=== PATIENT | female | born 1970 | race Hispanic/Latino ===

== ENCOUNTER → 2018-05-16 | Day surgery (SDC) | payer BC ==
[~2018-05-16] MED LIST: AZITHROMYCIN250 MG PO; BENTYL10 MG PO; BENZONATATE100 MG PO; CIPROFLOXACIN250 MG PO; FENTANYL CITRATE/PF 100MCG/2 ML INJ ONE; FLAGYL500 MG PO; HYOSCYAMINE SULFATE 0.5 MG/ML INJ ONE; MIDAZOLAM HCL 5MG/ML 2ML VIAL ONE; NORCO 5-325 TA1 EACH PO; PANTOPRAZOLE SO40 MG PO; PROPOFOL IV EMULSION 10 MG/ML 50 ML VIAL ONE; ULTRAM 50MG50 MG PO; ZOFRAN4 MG SL
--- OUTSIDE RECORDS SUMMARY | 2018-05-16 09:55 | XMS REPORT | Clinical Summary ---
Author Author [facility] Address Unknown Phone Unavailable Care Team Providers Care Fire And Explosion Investigator Name Role Phone PCP Unavailable Allergies Not on File Medications Not on file Active Problems Not on file Encounters Care Team Description Date Type Specialty 02/20/2018 Clinical Corporate Wellness Support after 05/15/2017 Immunizations Name Dates Previously Given Next Due FLUCELVAX QUAD PF (0.5mL 02/20/2018 syringe) Social History Date Tobacco Use Types Packs/Day Years Used Never Assessed Sex Assigned at Date Recorded Not on file Industry Job Start Date Occupation Not on file Not on file Not on file Travel End Travel History Travel Start No recent travel history available. Last Filed Vital Signs Not on file Plan of Treatment Health Maintenance Due Date Last Done Comments MMR VACCINES (1 of - 1971 Standard series) VARICELLA VACCINES (1 of 1983 2 - 2-dose adolescent series) CERVICAL CANCER SCREENING 1991 INFLUENZA VACCINE Completed 02/20/2018 HEPATITIS B VACCINES Aged Out No longer eligible based on patient's age to complete this topic IPV VACCINES Aged Out No longer eligible based on patient's age to complete this topic MENINGOCOCCAL VACCINE Aged Out No longer eligible based on patient's age to complete this topic Results Not on fileafter 05/15/2017 Insurance Payer Benefit Subscriber ID Type Phone Address Plan / Group BCBS BCBS xxxxxxxxxxxx PPO CHOICE PPO/FEDEMILE L EMPL PPO Advance Directives Patient has advance care planning documents on file. For more information, abhinav crooks contact: Brent Simon [address] [place] [id number]
[2018-05-16 13:15] VITALS: BP 134/74
[2018-05-16 13:28] LABS: WBC,FECAL (FECAL LACTOFERRIN) NEGATIVE (NEGATIVE)
--- NOTE | 2018-05-16 14:13 | Operative Report ---
DATE OF PROCEDURE: May 16, 2018 REFERRING PHYSICIAN: Dr. Jey Morris PROCEDURES PERFORMED 1. Esophagogastroduodenoscopy with esophageal dilatation and biopsies. 2. Colonoscopy with biopsies. INDICATIONS FOR EGD: Upper abdominal pain, dysphagia to solids. INDICATIONS FOR COLONOSCOPY: Chronic diarrhea, personal history of colon polyps. MEDICATION: Patient was done under MAC. Please see anesthesiologist's note. PROCEDURE: With the patient in the left lateral decubitus position, the flexible fiberoptic Olympus gastroscope was introduced into the esophagus under direct visualization without any difficulty. There was some patchy erythema noted in the distal esophagus. A minute tongue of velvety red mucosa was noted to extend proximally from the GE junction. Biopsies were obtained to rule out Kevin's. The esophagus was then dilated to size 52-[place] Dos Santos. The scope was then advanced with ease into the stomach, traversing a small sliding hiatal hernia. Mucosa overlying the antrum and the body revealed some patchy erythema and low-grade to moderate edema, and biopsies were obtained and sent to stain for H. pylori. Pylorus was of normal contour and shape. It was intubated with ease, and the scope was advanced all the way to the 2nd portion of the duodenum. The scope was then withdrawn slowly. Mucosa overlying the proximal 2nd portion and the duodenal bulb grossly appeared to be within normal limits. Biopsies were obtained to rule out sprue considering the patient's history of chronic diarrhea. The scope was then withdrawn back into the stomach and retroflexed. The mucosa overlying the fundus and the cardia appeared to be within normal limits. The scope was then straightened out. It was subsequently withdrawn. Patient tolerated the procedure well. IMPRESSION 1. Distal esophagitis, mild. 2. Esophagus dilated to size 52-[place] Dos Santos. 3. Rule out Kevin's esophagus. 4. Small sliding hiatal hernia. 5. Gastritis, biopsied. Biopsies sent to stain for H. pylori. 6. Rule out sprue. PLAN: Follow up histology. Initiate Protonix 40 mg 1 p.o. q.a.m. a.c. The patient was then turned around. After adequate lubrication of the anal canal, a flexible fiberoptic Olympus colonoscope was inserted into the rectum with ease and advanced all the way to the ileocolic anastomosis which was patent. The scope was then withdrawn slowly. Mucosa overlying the transverse as well as the descending and the sigmoid colon revealed some patchy mild inflammatory changes. Random biopsies were obtained. Diverticulosis was noted to involve the distal descending and the sigmoid colon. Similar inflammatory findings were noted in the rectum, and biopsies were obtained. The scope was then retroflexed into the distal rectum, and small internal hemorrhoids were noted, none of which was actively bleeding. The scope was then straightened out. It was subsequently withdrawn after securing an adequate stool specimen that was sent for the appropriate stool studies. Patient tolerated the procedure well. IMPRESSION 1. Ileocolic anastomosis intact. 2. Mild patchy colitis. 3. Diverticulosis. 4. Proctitis, mild. 5. Internal hemorrhoids, none actively bleeding. PLAN: Follow up histology. Follow up stool studies. Initiate Bentyl 10 mg 1 p.o. t.i.d. Patient might benefit from a followup colonoscopy in 3 to 5 years. YESSENIA JAMES MD Job#: [id number] cc:JEY MORRIS MD
[2018-05-16 14:34] LABS: C DIFFICILE TOXIN A&B AMP PROB NEGATIVE (NEGATIVE)
== END | disposition home or self-care (01) ==
LOC: OR 09:53
PROVIDERS: ATTEND Internal Medicine Gastroenterology
DX: K29.70 Gastritis, unspecified, without bleeding (principal); K52.9 Noninfective gastroenteritis and colitis, unspecified; K20.9 Esophagitis, unspecified; K44.9 Diaphragmatic hernia without obstruction or gangrene; K22.8 Other specified diseases of esophagus; Z98.0 Intestinal bypass and anastomosis status; K57.30 Diverticulosis of large intestine without perforation or abscess without bleeding; K62.89 Other specified diseases of anus and rectum; K64.8 Other hemorrhoids; D72.820 Lymphocytosis (symptomatic); R03.0 Elevated blood-pressure reading, without diagnosis of hypertension; E66.01 Morbid (severe) obesity due to excess calories; Z88.6 Allergy status to analgesic agent; Z80.0 Family history of malignant neoplasm of digestive organs; Z68.42 Body mass index [BMI] 45.0-49.9, adult
CPT/HCPCS: 43239; 43450; 45380; 83630; 83993; 87045; 87177; 87328; 87493; J1980; J2250; 45378

== ENCOUNTER 2018-05-21 08:36 | Emergency (ER) | payer BC ==
[~2018-05-21] VITALS: Ht 162.6 cm; Wt 113.4 kg
[~2018-05-21 08:36] MED LIST changes: -CIPROFLOXACIN250 MG PO; -FENTANYL CITRATE/PF 100MCG/2 ML INJ ONE; -FLAGYL500 MG PO; -HYOSCYAMINE SULFATE 0.5 MG/ML INJ ONE; -MIDAZOLAM HCL 5MG/ML 2ML VIAL ONE; -PROPOFOL IV EMULSION 10 MG/ML 50 ML VIAL ONE; -ZOFRAN4 MG SL
--- OUTSIDE RECORDS SUMMARY | 2018-05-21 08:39 | XMS REPORT | Clinical Summary ---
Author Author [facility] Address Unknown Phone Unavailable Care Team Providers Care Banquet Set Up Person Name Role Phone PCP Unavailable Allergies Not on File Medications Not on file Active Problems Not on file Encounters Care Team Description Date Type Specialty 02/20/2018 Clinical Corporate Wellness Support after 05/20/2017 Immunizations Name Dates Previously Given Next Due [...] complete this topic Results Not on fileafter 05/20/2017 Insurance Payer Benefit Subscriber ID Type Phone Address Plan / Group BCBS BCBS xxxxxxxxxxxx PPO CHOICE PPO/FEDEMILE L EMPL PPO Advance Directives Patient has advance care planning documents on file. For more information, abhinav crooks contact: Brent Simon [address] [place] [id number]
[2018-05-21] MEDS ORDERED: PANTOPRAZOLE 40 MG 10ML VIAL IV STA (08:48)
[2018-05-21] MEDS ORDERED: ONDANSETRON HCL INJ 2 MG/ML VIAL IV STA (08:48)
[2018-05-21] MEDS ORDERED: SODIUM CHLORIDE 0.9% 1000ML 1,000 ML IV STA (08:48)
[2018-05-21] MEDS ORDERED: FENTANYL CITRATE/PF 100MCG/2 ML INJ IV ONE (09:00)
--- NOTE | 2018-05-21 11:05 | Diagnostic Imaging Report ---
PROCEDURE:X-RAY CHEST, ONE VIEW COMPARISON:None. INDICATIONS:ABDOMEN PAIN FINDINGS: There are no consolidations, pleural effusions or pneumothorax. The cardiomediastinal silhouette and pulmonary vasculature are normal. There is a soft tissue density along the right medial cardiac border. This may represent a prominent epicardial fat-pad versus adenopathy. Linear right basilar atelectasis. There are no acute osseous abnormalities. CONCLUSION: No acute cardiopulmonary abnormality. Prominent soft tissue density along the medial right cardiac border. Aidan Desai D.O. Dictated by: Aidan Desai D.O. on 05/21/2018 at 11:15 Electronically approved by: Aidan Desai D.O. on 05/21/2018 at 11:15
[2018-05-21 11:08] LABS: BASOPHILS # (AUTO) 0.1 (0.0-0.1); BASOPHILS % 0.5 % (0.0-1.0); EOSINOPHILS # (AUTO) 0.2 (0.0-0.4); EOSINOPHILS % 1.8 % (0.0-6.0); HEMATOCRIT 40.1 % (34.2-44.1); HEMOGLOBIN 13.7 g/dL (12.0-16.0); LYMPHOCYTES # (AUTO) 3.3 (1.0-3.2); LYMPHOCYTES % 29.2 % (18.0-39.1); MEAN CORPUSCULAR HEMOGLOBIN 29.7 pg (28-32); MEAN CORPUSCULAR HGB CONC 34.2 g/dL (31-35); MEAN CORPUSCULAR VOLUME 86.8 fL (81-99); MONOCYTES # (AUTO) 0.5 (0.2-0.8); MONOCYTES % 4.8 % (4.4-11.3); NEUTROPHILS # (AUTO) 7.2 (2.1-6.9); NEUTROPHILS % 63.3 % (38.7-80.0); PLATELET COUNT 343 x10e3/uL (140-360); RED BLOOD COUNT 4.62 x10e6/uL (3.6-5.1); RED CELL DISTRIBUTION WIDTH 13.1 % (11.7-14.4)
[2018-05-21 11:08] LABS: CLARITY,URINE SL CLOUDY (CLEAR); COLOR,URINE YELLOW (YELLOW)
[2018-05-21 11:09] LABS: BILIRUBIN,URINE NEGATIVE (NEGATIVE); KETONES,URINE NEGATIVE (NEGATIVE); LEUKOCYTE ESTERASE ,URINE NEGATIVE (NEGATIVE); NITRITE,URINE NEGATIVE (NEGATIVE); PROTEIN,URINE DIPSTICK NEGATIVE (NEGATIVE); URINE UROBILINOGEN 0.2 mg/dL (0.2 - 1)
[2018-05-21 11:21] LABS: BACTERIA,URINE FEW /HPF; EPITHELIAL CELLS,URINE RARE /LPF; RBC,URINE 0-5 /HPF (0-5)
[2018-05-21 11:23] LABS: ALANINE AMINOTRANSFERASE 27 IU/L (0-55); ALBUMIN 3.7 g/dL (3.5-5.0); ALBUMIN/GLOBULIN RATIO 0.8 (0.8-2.0); ALKALINE PHOSPHATASE 98 IU/L (40-150); ANION GAP 14.8 mmol/L (8-16); BLOOD UREA NITROGEN 9 mg/dL (7-26); BUN/CREATININE RATIO 12 (6-25); CALCIUM 9.9 mg/dL (8.4-10.2); CARBON DIOXIDE 22 mmol/L (22-29); CHLORIDE 106 mmol/L (98-107); CREATININE, SERUM 0.75 mg/dL (0.57-1.11); EST GLOMERULAR FILTRATION RATE > 60 ML/MIN (60-); GLUCOSE 103 mg/dL (74-118); POTASSIUM 3.8 mmol/L (3.5-5.1); SODIUM 139 mmol/L (136-145)
--- NOTE | 2018-05-21 13:24 | Diagnostic Imaging Report ---
EXAM: CT Abdomen and Pelvis WITH contrast INDICATION: Pain COMPARISON: None. TECHNIQUE: Abdomen and Pelvis was scanned utilizing a multidetector helical scanner after administration of IV contrast. Coronal and sagittal reformations were obtained. IV CONTRAST: 100 mL Isovue-370 COMPLICATIONS: None RADIATION DOSE: Total DLP:877 mGy*cm Estimated effective dose: (DLP x 0.015 x size factor) mSv CTDIvol has been reviewed. It is below the limits set by the Radiation Protocol Committee (RPC). Appropriate CT dose reduction techniques were utilized. FINDINGS: Abdomen: Lung Bases: Atelectasis. Solid Organs: Decreased attenuation of liver suggesting steatosis. Cholecystectomy clips. Liver, adrenals, kidneys, spleen, and pancreas otherwise unremarkable. Upper GI Tract: No small bowel obstructive changes. Vascularity: No aortic aneurysm. Lymph Nodes: No suspicious adenopathy. Other: None. Pelvis: Bladder: Unremarkable. Other: None. Colon: Diverticulosis. Postsurgical changes:, Right hemicolectomy. Mild haziness about sigmoid colon. Bones: No acute findings. IMPRESSION: 1. Diverticulosis with minimal diverticulitis possible. 2. Hepatic steatosis. Signed by: Dr. Jeffery Shepherd MD on 05/21/2018 1:20 PM
[2018-05-21] MEDS ORDERED: CIPROFLOXACIN250 MG PO (13:47)
[2018-05-21] MEDS ORDERED: FLAGYL500 MG PO (13:48)
[2018-05-21 14:26] VITALS: BP 159/86
[2018-05-21] MEDS ORDERED: ZOFRAN4 MG SL (14:28)
[2018-05-21] MEDS ORDERED: ULTRAM 50MG50 MG PO (14:29)
[2018-05-21] MEDS ORDERED: IOPAMIDOL 370 MG/ML 200 ML INFUS..BTL INJ ONE (18:44)
[2018-05-21] MEDS ORDERED: SODIUM CHLORIDE 0.9% 50ML 50 ML ONE (18:44)
== END 2018-05-21 14:38 | disposition home or self-care (01) ==
LOC: ER 08:36
DX: R10.12 Left upper quadrant pain (principal); R10.84 Generalized abdominal pain; R11.0 Nausea
CPT/HCPCS: 36415; 71045; 74177; 80053; 81001; 84702; 85025; 99284; J2405; J7030; Q9967

== ENCOUNTER 2019-03-11 05:06 | Emergency (ER) | payer BC, OTHER ==
[~2019-03-11] VITALS: Ht 162.6 cm; Wt 113.4 kg
[~2019-03-11 05:06] MED LIST changes: +CIPROFLOXACIN250 MG PO; +FLAGYL500 MG PO; +ZOFRAN4 MG SL
--- OUTSIDE RECORDS SUMMARY | 2019-03-11 05:09 | XMS REPORT ---
Author Author [facility] Address Unknown Phone Unavailable Care Team Providers Care Slimer Name Role Phone Anne JJ Unavailable Unavailable Problems This patient has no known problems. Allergies, Adverse Reactions, Alerts This patient has no known allergies or adverse reactions. Medications This patient has no known medications. Encounters Start Date/Time End Date/Time Encounter Type Admission Type Attending [facility] Facility Care Department Encounter ID 2018-09-07 12:36:00 2018-09-07 12:36:00 Emergency E [facility]NE [id number] Results Test Description Test Time Test Comments Text Results Atomic Results Result Comments CT ABDOMEN/PELVIS W 2018-05-21 13:18:00 [place] [address] Patient Name: JU RAJAN MR #: [id number] : 1970 Age/Sex: 48/F Req #: [id number] Adm Physician: Ordered by: OLGA JJ MD Report #: [id number] Location: ER Room/Bed: Procedure: [id number] CT/CT ABDOMEN/PELVIS W Exam Date: 05/21/18 Exam Time: 1205 REPORT STATUS: Signed EXAM: CT Abdomen and Pelvis WITH contrast INDICA TION: Pain COMPARISON: None. TECHNIQUE: Abdomen and Pelvis was scanned utilizing a multidetector helical scanner after administration of IV contrast. Coronal and sagittal reformations were obtained. IV CONTRAST: 100 mL Isovue-370 COMPLICATIONS: None RADIATION DOSE: Total DLP:877 mGy*cm Estimated effective dose: (DLP x 0.015 x size factor) mSv CTDIvol has been reviewed. It is below the limits set by the Radiation Protocol Committee (RPC). Appropriate CT dose reduction techniques were utilized. FINDINGS: Abdomen: Lung Bases: Atelectasis. Solid Organs: Decreased attenuation of liver suggesting steatosis. Cholecystectomy clips. Liver, adrenals, kidneys, spleen, and pancreas otherwise unremarkable. Upper GI Tract: No small bowel obstructive changes. Vascularity: No aortic aneurysm. Lymph Nodes: No suspicious adenopathy. Other: None. Pelvis: Bladder: Un remarkable. Other: None. Colon: Diverticulosis. Postsurgical changes:, Right hemicolectomy. Mild haziness about sigmoid colon. Bones: No acute findings. IMPRESSION: 1. Diverticulosis with minimal diverticulitis possible. 2. Hepatic steatosis. Signed by: Dr. Jeffery Shepherd MD on 05/21/2018 1:20 PM Dictated By: JEFFERY SHEPHERD MD 1320 Transcribed By: KARINA on 05/21/18 1320 COPY TO: OLGA JJ MD CHEST SINGLE (NOT PORTABLE) 2018-05-21 11:15:00 [place] [address] Patient Name: JU RAJAN MR #: [id number] : 1970 Age/Sex: 48/F Req #: [id number] Adm Physician: Ordered by: OLGA JJ MD Report #: [id number] Location: ER Room/Bed: Procedure: [id number] DX/CHEST SINGLE (NOT PORTABLE) Exam Date: 05/21/18 Exam Time: 1035 REPORT STATUS: Signed PROCEDURE: X-RAY CHEST, ONE VIEW COMPARISON: None. INDICATIONS: ABDOMEN PAIN FINDINGS: There are no consolidations, pleural effusions or pneumothorax. The cardiomediastinal silhouette and pulmonary vasculature are normal. There is a soft tissue density along the right medial cardiac border. This may represent a prominent epicardial fat-pad versus adenopathy. Linear right basilar atelectasis. There are no acute osseous abnormalities. CONCLUSION: No acute cardiopulmonary abnormality. Prominent soft tissue density along the medial right cardiac border. Zelda Desai D.O. Dictated by: Zelda Desai D.O. on 05/21/2018 at 11:15 Electronically approved by: Zelda Desai D.O. on 05/21/2018 at 11:15 Dictated By: ZELDA DESAI DO 1115 Transcribed By: LINK on 05/21/18 1115 COPY TO: OLGA JJ MD
--- OUTSIDE RECORDS SUMMARY | 2019-03-11 05:09 | XMS REPORT | Clinical Summary ---
Author Author [facility] Address Unknown Phone Unavailable Care Team Providers Care Chemistry Lab Instructor Name Role Phone PCP Unavailable Allergies Not on File Medications Not on file Active Problems Not on file Immunizations Name Administration Dates Next Due FLUCELVAX QUAD PF 02/20/2018 Social History Date Tobacco Use Types Packs/Day Years Used Never Assessed Sex Assigned at Date Recorded Not on file Industry Job Start Date Occupation Not on file Not on file Not on file Travel End Travel History Travel Start No recent travel history available. Last Filed Vital Signs Not on file Plan of Treatment Health Maintenance Due Date Last Done Comments CERVICAL CANCER SCREENING 1991 INFLUENZA VACCINE 01/15/2019 02/20/2018 Results Not on fileafter 03/10/2018 Insurance Type Payer Benefit Subscriber ID Effective Phone Address Plan / Dates Group PPO BCBS BCBS xxxxxxxxxxxx 2017-P CHOICE resent PPO/TOMY JAY PPO Advance Directives For more information, please contact: [phone] Patient Tomographic Tech Explanation Type Date Recorded Advance Directives, Living Will and Medical Power of Carbon Setter
[2019-03-11] MEDS ORDERED: DIATRIZOATE MEGL/DIATRIZOA SOD 30 ML BTL PO ONE (05:43)
[2019-03-11 06:49] LABS: BASOPHILS # (AUTO) 0.1 (0.0-0.1); BASOPHILS % 0.6 % (0.0-1.0); EOSINOPHILS # (AUTO) 0.2 (0.0-0.4); EOSINOPHILS % 2.2 % (0.0-6.0); HEMATOCRIT 40.7 % (34.2-44.1); HEMOGLOBIN 13.5 g/dL (12.0-16.0); LYMPHOCYTES # (AUTO) 2.5 (1.0-3.2); MEAN CORPUSCULAR HEMOGLOBIN 29.2 pg (28-32); MEAN CORPUSCULAR HGB CONC 33.2 g/dL (31-35); MEAN CORPUSCULAR VOLUME 87.9 fL (81-99); MONOCYTES # (AUTO) 0.5 (0.2-0.8); MONOCYTES % 4.9 % (4.4-11.3); NEUTROPHILS # (AUTO) 6.3 (2.1-6.9); NEUTROPHILS % 65.8 % (38.7-80.0); PLATELET COUNT 324 x10e3/uL (140-360); RED BLOOD COUNT 4.63 x10e6/uL (3.6-5.1); RED CELL DISTRIBUTION WIDTH 13.3 % (11.7-14.4)
[2019-03-11 07:08] LABS: ALANINE AMINOTRANSFERASE 25 IU/L (0-55); ALBUMIN 3.2 g/dL (3.5-5.0); ALBUMIN/GLOBULIN RATIO 0.7 (0.8-2.0); ALKALINE PHOSPHATASE 94 IU/L (40-150); ANION GAP 13.8 mmol/L (8-16); BLOOD UREA NITROGEN 11 mg/dL (7-26); BUN/CREATININE RATIO 14 (6-25); CALCIUM 9.4 mg/dL (8.4-10.2); CARBON DIOXIDE 24 mmol/L (22-29); CHLORIDE 103 mmol/L (98-107); EST GLOMERULAR FILTRATION RATE > 60 ML/MIN (60-); GLUCOSE 166 mg/dL (74-118); POTASSIUM 3.8 mmol/L (3.5-5.1); SODIUM 137 mmol/L (136-145)
[2019-03-11 07:48] LABS: BILIRUBIN,URINE NEGATIVE (NEGATIVE); CLARITY,URINE CLOUDY (CLEAR); COLOR,URINE YELLOW (YELLOW); KETONES,URINE NEGATIVE (NEGATIVE); LEUKOCYTE ESTERASE ,URINE NEGATIVE (NEGATIVE); NITRITE,URINE NEGATIVE (NEGATIVE); PROTEIN,URINE DIPSTICK NEGATIVE (NEGATIVE); URINE UROBILINOGEN 0.2 mg/dL (0.2 - 1)
[2019-03-11] MEDS ORDERED: KETOROLAC TROMETHAMINE 30 MG/ML VIAL IV ONE (07:48)
[2019-03-11] MEDS ORDERED: KETOROLAC TROMETHAMINE 30 MG/ML VIAL ONE (07:54)
[2019-03-11 08:04] LABS: BACTERIA,URINE MODERATE /HPF; EPITHELIAL CELLS,URINE RARE /LPF; WBC,URINE (MAN) 0-5 /HPF (0-5)
[2019-03-11] MEDS ORDERED: HYDROMORPHONE 1MG/1ML INJ IV ONE ×2 (08:37→08:40)
[2019-03-11] MEDS ORDERED: ONDANSETRON HCL INJ 2MG/ML 2ML 2 MG/ML VIAL IV ONE (08:37)
--- NOTE | 2019-03-11 08:42 | Diagnostic Imaging Report ---
EXAM: CT Abdomen and Pelvis WITH intravenous contrast INDICATION: Left lower quadrant abdominal pain COMPARISON: CT abdomen and pelvis of 05/21/2018 TECHNIQUE: Abdomen and pelvis were scanned utilizing a multidetector helical scanner from the lung base to the pubic symphysis after administration of IV contrast. Coronal and sagittal reformations were obtained. Routine protocol was performed. Scan was performed during portal venous phase. IV CONTRAST: 100mL of Isovue 370 ORAL CONTRAST: Gastrografin RADIATION DOSE: Total DLP: 835.5 mGy*cm Dose modulation, iterative reconstruction, and/or weight based adjustment of the mA/kV was utilized to reduce the radiation dose to as low as reasonably achievable. FINDINGS: LOWER THORAX: Normal. HEPATOBILIARY: Severe diffuse hepatic steatosis and hepatomegaly, measuring up to 29 cm. No focal liver lesion. No biliary ductal dilation. Status post cholecystectomy. SPLEEN: No splenomegaly. PANCREAS: No focal masses or ductal dilatation. ADRENALS: No adrenal nodules. KIDNEYS/URETERS: No hydronephrosis, stones, or solid mass lesions. PELVIC ORGANS/BLADDER: Status post hysterectomy. PERITONEUM / RETROPERITONEUM: No free air or fluid. LYMPH NODES: No lymphadenopathy. VESSELS: Unremarkable. GI TRACT: Sigmoid diverticulosis without CT evidence of diverticulitis. BONES AND SOFT TISSUES: No acute osseous injury. No suspicious lytic or blastic lesions. IMPRESSION: Sigmoid diverticulosis without CT evidence of diverticulitis. Hepatomegaly and severe diffuse hepatic steatosis. Signed by: Marina Caceres MD on 03/11/2019 8:38 AM
[2019-03-11] MEDS ORDERED: IOPAMIDOL 370 MG/ML 200 ML INFUS..BTL INJ ONE (18:01)
[2019-03-11] MEDS ORDERED: SODIUM CHLORIDE 0.9% 50ML 50 ML ONE (18:01)
== END 2019-03-11 09:31 | disposition home or self-care (01) ==
LOC: ER 05:06
DX: R10.32 Left lower quadrant pain (principal); R19.7 Diarrhea, unspecified; Z87.19 Personal history of other diseases of the digestive system; Z98.0 Intestinal bypass and anastomosis status
CPT/HCPCS: 36415; 74177; 80053; 81001; 85025; 96374; 96375; 99284; J1170; J1885; J2405; Q9967